=== PATIENT | male | born 2000 | race Caucasian/White ===

== ENCOUNTER 2022-06-15 14:45 | Emergency (ER) | payer OTHER, SELFPAY ==
--- NOTE | ~2022-06-15 | XR_ITS ---
EXAMINATION: XR hip BI 2V w AP pelvis DATE: 06/15/2022 17:21 INDICATION: Bilateral hip pain TECHNIQUE: AP view of the pelvis and two views of each hip were obtained. COMPARISON: None. FINDINGS: Bone alignment is normal. There is no fracture. The joint spaces are normal. The soft tissu es are unremarkable. Spina bifida occulta is noted at S1. IMPRESSION: 1. No acute osseous abnormality. Reviewed, dictated and finalized at location A.
[2022-06-15 15:08] VITALS: BP 156/76; PULSE 60; RESP 18; TEMP 36.6; O2SAT 100
--- NOTE | 2022-06-15 16:13 | ED.LOWEXIN ---
HPI - Extremity Injury (Lower) General Chief Complaint: Extremity Injury, Lower Stated Complaint: right hip pain Time Seen by Provider: 06/15/22 16:13 Source: patient Limitations: no limitations History of Present Illness HPI Narrative: Patient is a 22-year-old male presenting for evaluation of acute on chronic worsening of bilateral hip pain greater in the right than on the left. Patient states he has had intermittently worsening right hip pain over the past 2 years, to the point this morning where he had difficulty ambulating secondary to severe pain. Patient denies any radiation of the pain. He denies any weakness or numbness. He reports that pain is recently started to occur in the left hip as well. He denies any history of autoimmune disease in family. States he is healthy without any medical diagnoses. Patient denies any back pain. Denies rash. Denies fever or chills. Denies trauma or injury in the past. Does have a history of youth sports, no history of overuse injuries. Related Data Allergies Allergy/AdvReac Type Severity Reaction Status Date / Time No Known Allergies Allergy Verified 06/15/22 18:16 Review of Systems Review of Systems: CONSTITUTIONAL: Denies fever, chills, or sweats. CARDIOVASCULAR: Denies chest pain, palpitations, or edema. RESPIRATORY: Denies cough or dyspnea. GASTROINTESTINAL: Denies abdominal pain, nausea, vomiting, or diarrhea. GENITOURINARY: Denies dysuria or hematuria. SKIN: Denies rash or itching. MUSCULOSKELETAL: Denies back pain, reports bilateral hip pain without myalgias NEUROLOGIC: Denies headache, numbness, or weakness. ON LICENSE OF [facility] Past Medical History Medical History (Updated 06/15/22 @ 18:17 by Ivet Stone MD) No pertinent past medical history Surgical History Surgical History (Updated 06/15/22 @ 17:19 by Ivet Stone MD) History of tympanostomy tube placement Social History Social History (Updated 06/15/22 @ 17:20 by Ivet Stone MD) Smoking status: Former smoker Alcohol intake: current Alcohol use details: Social, rare Substance use: former Substance use type: marijuana Gender identity (if verbalized by the patient): Male Exam Narrative: GENERAL: Awake, alert, conversant HEAD: Normocephalic, atraumatic. EYES: PERRLA and EOMI. ENT: Nares clear, no rhinorrhea or epistaxis. Mucous membranes moist. NECK: Supple. CHEST: No respiratory distress, breathing even and non labored HEART: Regular rate, sinus rhythm ABDOMEN:Non distended, non tender EXTREMITIES: Normal range of motion. No edema. Pelvis is stable to anterior and lateral compression. Patient is ambulatory with a narrow base, steady gait, no ataxia. SKIN: Warm, dry, no rash. NEURO:No focal deficits. Alert and oriented x3 Course Vital Signs Vital signs: Vital Signs Temperature 36.6 C 06/15/22 15:08 Pulse Rate 60 06/15/22 15:08 Respiratory Rate 18 06/15/22 15:08 Blood Pressure 156/76 H 06/15/22 15:08 Pulse Oximetry 100 06/15/22 15:08 Temperature 36.6 C 06/15/22 15:08 Pulse Rate 60 06/15/22 15:08 Respiratory Rate 18 06/15/22 15:08 Blood Pressure 156/76 H 06/15/22 15:08 Pulse Oximetry 100 06/15/22 15:08 MDM - Extremity Injury (Lower) MDM Narrative Medical decision making narrative: Patient presenting for evaluation of bilateral hip pain increasing over the past 2 years, greater on the right than on the left. Patient is ambulatory nontoxic-appearing at the time of assessment. He has full range of motion of the right hip without limitation. He does not have any overlying skin changes erythema, ecchymosis. No limb length discrepancy. He has no back pain, fever or other systemic symptoms. Patient without history of autoimmune disease in self or family. Does not seem consistent with septic arthritis given timeline. X-ray imaging of the bilateral hips is reassuring without evidence of aseptic necrosis or other acute findings. Radiologist
[2022-06-15 16:49] LABS: Basophils Percent Auto 0.4 % (0.2-1.2); Eosinophils Absolute Auto 0.2 K/mm3 (0-0.3); Hematocrit 42.9 % (42.0-52.0); Hemoglobin 15.2 g/dL (14.0-18.0); Immature Granulocyte Absolute 0.02 K/mm3 (0.00-0.031); Immature Granulocyte Percent A 0.3 % (0-0.5); Lymphocytes Absolute Auto 2.75 K/mm3 (0.9-3.2); Lymphocytes Percent Auto 37.5 % (18.3-44.2); Mean Corpuscular HGB Conc 35.4 g/dl (32-36); Mean Corpuscular Hemoglobin 29.3 pg (26-34); Mean Corpuscular Volume 82.7 fl (80-100); Mean Platelet Volume 9.8 fl (7.4-10.4); Monocytes Absolute Auto 0.5 K/mm3 (0.1-0.6); Monocytes Percent Auto 6.5 % (2.6-8.5); Neutrophils Absolute Auto 3.8 K/mm3 (1.3-6.7); Neutrophils Percent Auto 52.3 % (45.5-73.1); Platelet Count Result 221 k/mm3 (150-375); Red Blood Count 5.19 M/mm3 (4.6-6.20); Red Cell Distribution Width 11.8 % (11.5-14.5); White Blood Count 7.3 K/mm3 (4.5-10.0)
[2022-06-15 17:07] LABS: Anion Gap 10 mmol/L (8-16); Blood Urea Nitrogen 15 mg/dL (9-20); CRP 2.2 mg/dL (<1.0); Calcium 9.5 mg/dL (8.4-10.2); Carbon Dioxide 28 mmol/L (22-30); Chloride 102 mmol/L (98-107); Estimated CRCL calculation 160 ml/min; Estimated Glomerular Filt Rate > 60; Glucose 92 mg/dL (65-110); Potassium 3.9 mmol/L (3.4-5.0); Sodium 140 mmol/L (137-145)
[2022-06-15 17:22] LABS: Erythrocyte Sedimentation Rate 16 mm/hr (0-20)
== END 2022-06-15 18:40 | disposition home or self-care (01) ==
PROVIDERS: Emergency Provider Emergency Medicine
DX: S76.012A Strain of muscle, fascia and tendon of left hip, initial encounter (principal); S76.011A Strain of muscle, fascia and tendon of right hip, initial encounter; Z87.891 Personal history of nicotine dependence; X58.XXXA Exposure to other specified factors, initial encounter
CPT/HCPCS: 36415; 73521; 80048; 85025; 85652; 86140; 99283